=== PATIENT | male | born 1990 | race Caucasian/White ===

== ENCOUNTER → 2019-06-02 08:36 | Outpatient (BNVA) | payer MEDICARE, MEDICAID, SELFPAY | PROVIDERS: Family Provider Family Medicine; PCP Family Medicine; Visit Provider Nurse Practitioner Psychiatric/Mental Health | DX: F31.32 Bipolar disorder, current episode depressed, moderate (principal); F70 Mild intellectual disabilities | CPT/HCPCS: 99213 ==

== ENCOUNTER → 2019-09-23 07:36 | Outpatient (BNVA) | payer MEDICARE, MEDICAID, SELFPAY | PROVIDERS: Family Provider Family Medicine; PCP Family Medicine; Visit Provider Nurse Practitioner Psychiatric/Mental Health | DX: F31.32 Bipolar disorder, current episode depressed, moderate (principal); F70 Mild intellectual disabilities; F41.9 Anxiety disorder, unspecified | CPT/HCPCS: 99213 ==

== ENCOUNTER 2019-10-28 17:43 | Emergency (ER) | payer MEDICARE, MEDICAID, SELFPAY ==
[2019-10-28 17:57] VITALS: BP 129/84; PULSE 116; RESP 17; TEMP 37.1; O2SAT 99; BMI 30.9
[2019-10-28 18:06] VITALS: PULSE 151; RESP 24; O2SAT 97
[2019-10-28] MEDS: sodium chloride 0.9% 1,000 ML 100 ML IV (18:28)
[2019-10-28 18:30] LABS: Basophils % 0.3 %; Eosinophils # 0.2 10^3/uL (0.0-0.8); Eosinophils % 3.3 %; Hematocrit 45.2 % (42.0-52.0); Hemoglobin 14.7 g/dL (11.7-16.6); Lymphocytes # 1.4 10^3/uL (0.8-4.8); Lymphocytes % 19.9 %; Mean Corpuscular HGB Conc 32.5 g/dL (30.0-36.0); Mean Corpuscular Hemoglobin 27.7 pg (28.0-34.0); Mean Corpuscular Volume 85.3 fL (80-94); Monocytes # 0.1 10^3/uL (0.2-0.9); Monocytes % 0.8 %; Neutrophils # 5.45 10^3/uL (1.8-7.7); Neutrophils % 75.6 %; Nucleated Red Blood Cells % 0 %; Platelet Count 219 10^3/cmm (130-400); Red Cell Distribution Width 11.9 % (12.1-15.1); White Blood Count 7.2 10^3/uL (4.0-10.0)
[2019-10-28 18:33] VITALS: BP 119/91; PULSE 134; RESP 24; TEMP 36.8; O2SAT 99
[2019-10-28 18:44] LABS: INR 0.92 (0.8-1.2)
[2019-10-28 18:50] LABS: Alanine Aminotransferase 43 U/L (0-41); Albumin Level 4.9 g/dL (3.5-5.2); Alkaline Phosphatase 84 IU/L (40-130); Anion Gap 14.1 (5-19); Aspartate Amino Transferase 35 U/L (0-40); Blood Urea Nitrogen 16 mg/dL (6-20); Calcium 9.7 mg/dL (8.5-10.5); Carbon Dioxide 27 mmol/L (22-29); Chloride 101 mmol/L (98-107); Glomerular Filtration Rate 98.4 mL/min (90-130); Glucose 91 mg/dL (65-115); Osmolality Calculated 282 mOsm/kg (285-295); Potassium 4.1 mmol/L (3.5-5.1); Sodium 138 mmol/L (136-145); Total Bilirubin 0.3 mg/dL (0.15-1.2); Total Protein 7.9 g/dL (6.6-8.7)
--- NOTE | 2019-10-28 18:51 | PC.NURSE ---
Pt resting quietly in room at this time, caregiver at bedside. Pt and caregiver state that pt straight catheterizes at home. This morning he catheterized and had no urine output. This afternoon at approximately 1600 he catheterized again and had no urine output but some blood return. He went to urgent care and catheterized again at approximately 1700 and had no urine output only blood return again. Pt also appears to have chills but has no fever noted at this time. Supplies given to pt to self-cath for urine specimen. Pt denies any further needs. Dr. Trivedi aware of pt symptoms and elevated HR at this time.
--- NOTE | 2019-10-28 18:56 | W.ED.MALEGU ---
Documented by User: Roxy Trivedi MD 10/31/19 20:24 HPI - Male Genitourinary General: Chief complaint: Urogenital-Male Stated complaint: blood in urine Time Seen by Provider: 10/28/19 18:06 History of Present Illness: HPI Narrative: This patient is a 29-year-old male with a history of spina bifida. He self caths and has done so for a long time. This morning he had gone to [facility] to have blood work done and had not self cathed yet prior to that in case they needed a urine specimen. They did not need a urine specimen and as he was leaving the office he went to the bathroom and tried to self cath. He said he had trouble getting the catheter in and no urine came out. He got frustrated and said he may have pulled the catheter out too fast. He then went on to work. He normally self caths again in the afternoon and he did so when he got home at 4:00. This time he only got blood from the catheter. He went to [facility] again for evaluation of this and when he tried again to cath himself again it was just blood. He has never had this happen before. He is not been having any problems up until this morning. He cannot feel when his bladder is full. He denies any specific complaints but has been shaking a lot and feels generally uncomfortable. He does not think he is had a fever. He has back pain. His caregiver is with him here today. He has been having normal bowel movements. No vomiting. He ate breakfast and lunch okay today. He has not had dinner. Complaint: other (Gross hematuria, self caths) Onset (ago): hour(s) (10) Duration: constant Associated symptoms: Deny nausea or vomiting Review of Systems General: Reports: 10 or more systems reviewed and unremarkable except in HPI and below Const: Denies: fever(s), chills, fatigue or malaise Eyes: Denies: change in vision ENMT: Denies: odynophagia Card: Denies: chest pain or swelling of feet/ankles Resp: Denies: dyspnea, productive cough or non-productive cough GI: Denies: abdominal pain, nausea or vomiting : Reports: other (Difficulty with self cathing, hematuria on subsequent attempts); Denies: flank pain Musc: Reports: back pain; Denies: neck pain Skin/Breast: Denies: rash Neuro: Denies: headache(s), numbness in extremities or weakness in extremities Isaias/Lymph: Denies: easy bruising or easy bleeding PFSH ED PFSH: Medical History Bipolar I disorder, moderate, current or most recent episode depressed, with anxious distress Chronic constipation 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 On [facility] program for bladder drainage secondary to neurogenic bladder from spinal bifida. Complicated by occasional urethral trauma (false passage) Spina bifida Urinary retention Chronic secondary to neurogenic bladder from spinal bifida. On [facility] program Family History Other Diabetes Seizure disorder Social History Smoking and tobacco status: never smoked Alcohol intake: never Substance/Drug Use: never Marital status: Single Current occupational status: disabled Physical Exam Const: COMMON NORMALS: patient oriented x3, no limitations and alert GENERAL APPEARANCE: cooperative and in distress HENMT: HEAD & SCALP: normal to inspection FACE & SINUS: normal facial exam Eye: GENERAL EYE: appearance normal, both eyes and all related structures Neck/C-Spine: COMMON NORMALS: supple, no meningeal signs and no JVD Chest: COMMONS NORMALS: normal inspection of the chest Resp: COMMON NORMALS: normal respiratory effort, No use of accessory muscles and clear to auscultation bilaterally AUSCULTATION: clear to auscultation bilaterally Cardio: COMMON NORMALS: no JVD, regular rate, regular rhythm and No murmurs present (Cardio) RATE: regular rate RHYTHM: regular rhythm GI: COMMON NORMALS: Normal to inspection, nondistended, normoactive bowel sounds present, Soft to palpation and non-tender INSPECTION: Yes normal to inspection AUSCULTATION: Yes normoactive bowel sounds PALPATION: Yes Soft to palpation Back/Pelvis: COMMON NORMALS: thoracic and lumbar spine normal to inspection Extremity: COMMON NORMALS: normal to inspection Neuro: COMMON NORMALS: patient oriented x3, moves all extremities (Spina bifida), no focal motor deficits and no sensory deficits noted SENSORIUM/ORIENTATION: Yes alert MENINGEAL SIGNS: Yes no meningeal signs Psych: COMMON NORMALS: mental status grossly normal, cooperative and normal affect Skin: COMMON NORMALS: no rashes or lesions noted and turgor normal GENERAL SKIN EXAM: no rashes or lesions noted and turgor normal Course ED course: We attempted to place a catheter. I suspect that there may be a false tract. Gross blood was the only thing that was obtained from the catheter. Any attempt to flush the catheter was unsuccessful. Bedside ultrasound shows a large, full bladder. The patient has been persistently tachycardic while in the ED and I suspect this may be related to his full bladder and a sympathetic response. His blood pressure is not been markedly elevated, and in fact at times has been on the low side. I am hesitant to give him fluids given that his bladder is full and we cannot seem to drain it. We been attempting to get a hold of Dr. Kraft without success at this point. I will have to turn the patient over to Dr. Zamarripa for further management. Vital Signs: Vital signs: Vital Signs Temperature 98.3 F 10/28/19 18:33 Pulse Rate 127 H 10/29/19 07:38 Respiratory Rate 16 10/29/19 07:38 Blood Pressure 112/78 10/29/19 07:38 Pulse Oximetry 95 10/29/19 07:38 MDM - Male MDM Narrative: Medical decision making narrative: Suspect urinary retention related to urethral injury. Patient may have created a false tract during his attempt to self cath this morning. May need urology consult. Lab Data: Labs: Lab Results 10/28/19 10/28/19 10/28/19 Range/Units 18:21 18:21 18:21 WBC 7.2 (4.0-10.0) 10^3/ uL RBC 5.30 (4.1-5.3) 10^6/u L Hgb 14.7 (11.7-16.6) g/dL Hct 45.2 (42.0-52.0) % MCV 85.3 (80-94) fL MCH 27.7 L (28.0-34.0) pg MCHC 32.5 (30.0-36.0) g/dL RDW 11.9 L (12.1-15.1) % Plt Count 219 (130-400) 10^3/c mm MPV 9.0 (7.4-10.4) fL Neut % (Auto) 75.6 % Lymph % (Auto) 19.9 % Cataño % (Auto) 0.8 % Eos % (Auto) 3.3 % Baso % (Auto) 0.3 % Neut # (Auto) 5.45 (1.8-7.7) 10^3/u L Lymph # (Auto) 1.4 (0.8-4.8) 10^3/u L Cataño # (Auto) 0.1 L (0.2-0.9) 10^3/u L Eos # (Auto) 0.2 (0.0-0.8) 10^3/u L Baso # (Auto) 0.0 (0.0-0.1) 10^3/u L Nucleated RBC % (a uto) 0 % Nucleated RBCs # 0.0 /100WBC PT 12.60 (10.5-13.3) SECO NDS INR 0.92 (0.8-1.2) Sodium 138 (136-145) mmol/L Potassium 4.1 (3.5-5.1) mmol/L Chloride 101 (98-107) mmol/L Carbon Dioxide 27 (22-29) mmol/L Anion Gap 14.1 (5-19) BUN 16 (6-20) mg/dL Creatinine 0.9 (0.7-1.2) mg/dL GFR Calculation 98.4 (90-130) mL/min Glucose 91 (65-115) mg/dL Calculated Osmolal ity 282 L (285-295) mOsm/k g Lactate (0.5-2.2) mmol/L Calcium 9.7 (8.5-10.5) mg/dL Total Bilirubin 0.3 (0.15-1.2) mg/dL AST 35 (0-40) U/L ALT 43 H (0-41) U/L Alkaline Phosphata se 84 (40-130) IU/L Total Protein 7.9 (6.6-8.7) g/dL Albumin 4.9 (3.5-5.2) g/dL Globulin 3.0 (1.3-4.6) g/dL Urine Color (Yellow) Urine Appearance (CLEAR) Urine pH (5-7) Ur Specific Gravit y (1.005-1.030) Urine Protein (Negative) Urine Glucose (UA) (Normal) Urine Ketones (Negative) Urine Blood (Negative) Urine Nitrate (Negative) Urine Bilirubin (NEGATIVE) Urine Urobilinogen (Negative) mg/dL Ur Leukocyte Romina ase (Negative) Urine RBC (0-2) /hpf Urine WBC (0-5) /hpf Ur Squamous Epith Cells (0-5) Amorphous Sediment Urine Bacteria (NONE) 10/28/19 10/29/19 Range/Units 22:19 07:05 WBC (4.0-10.0) 10^3/ uL RBC (4.1-5.3) 10^6/u L Hgb (11.7-16.6) g/dL Hct (42.0-52.0) % MCV (80-94) fL MCH (28.0-34.0) pg MCHC (30.0-36.0) g/dL RDW (12.1-15.1) % Plt Count (130-400) 10^3/c mm MPV (7.4-10.4) fL Neut % (Auto) % Lymph % (Auto) % Cataño % (Auto) % Eos % (Auto) % Baso % (Auto) % Neut # (Auto) (1.8-7.7) 10^3/u L Lymph # (Auto) (0.8-4.8) 10^3/u L Cataño # (Auto) (0.2-0.9) 10^3/u L Eos # (Auto) (0.0-0.8) 10^3/u L Baso # (Auto) (0.0-0.1) 10^3/u L Nucleated RBC % (a uto) % Nucleated RBCs # /100WBC PT (10.5-13.3) SECO NDS INR (0.8-1.2) Sodium (136-145) mmol/L Potassium (3.5-5.1) mmol/L Chloride (98-107) mmol/L Carbon Dioxide (22-29) mmol/L Anion Gap (5-19) BUN (6-20) mg/dL Creatinine (0.7-1.2) mg/dL GFR Calculation (90-130) mL/min Glucose (65-115) mg/dL Calculated Osmolal ity (285-295) mOsm/k g Lactate 1.9 (0.5-2.2) mmol/L Calcium (8.5-10.5) mg/dL Total Bilirubin (0.15-1.2) mg/dL AST (0-40) U/L ALT (0-41) U/L Alkaline Phosphata se (40-130) IU/L Total Protein (6.6-8.7) g/dL Albumin (3.5-5.2) g/dL Globulin (1.3-4.6) g/dL Urine Color Yellow (Yellow) Urine Appearance Cloudy (CLEAR) Urine pH 6.5 (5-7) Ur Specific Gravit y 1.010 (1.005-1.030) Urine Protein Neg (Negative) Urine Glucose (UA) Norm (Normal) Urine Ketones Negative (Negative) Urine Blood 3+ H (Negative) Urine Nitrate Negative (Negative) Urine Bilirubin Neg (NEGATIVE) Urine Urobilinogen Norm (Negative) mg/dL Ur Leukocyte Romina ase 2+ H (Negative) Urine RBC 25-40 H (0-2) /hpf Urine WBC >100 H (0-5) /hpf Ur Squamous Epith Cells 5-10 H (0-5) Amorphous Sediment Not Reportable Urine Bacteria 2+ H (NONE) Discharge Plan Discharge Patient Disposition: Home, Self-Care Clinical Impression: Acute urinary retention Urinary tract infection Qualifiers: Urinary tract infection type: acute cystitis Hematuria presence: without hematuria Qualified Code(s): N30.00 - Acute cystitis without hematuria Condition: Stable Prescriptions: New sulfamethoxazole-trimethoprim 800-160 mg tablet 1 tab PO BID 7 Days Qty: 14 RF: 0 No Action acetaminophen 500 mg capsule 500 mg PO Q6H PRNRF: 0 diphenhydramine HCl [Benadryl Allergy] 25 mg tablet 25 mg PO TID PRNRF: 0 docusate sodium [Colace] 100 mg capsule 100 mg PO BID RF: 0 loperamide [Anti-Diarrheal (loperamide)] 2 mg capsule 2 mg PO Q4H PRNRF: 0 vitamin E (dl, acetate) 400 unit capsule 400 unit PO DAILY RF: 0 guaifenesin [Mucinex] 600 mg tablet extended release 12hr 600 mg PO BID PRNRF: 0 venlafaxine [Effexor XR] 75 mg capsule,extended release 24hr 75 mg PO QAM Qty: 30 RF: 5 quetiapine [Seroquel] 50 mg tablet 50 mg PO BID Qty: 60 RF: 5 Discharge Orders: Discharge Order (Routine); Ordered 10/29/19 Ordered By: Roxy Trivedi Referrals: Jovany Kraft MD [Physician] - 1 week Marcin Ya MD [Primary Care Provider] - Discharge Diet: Usual diet Discharge Activity: Resume usual activity Activity Restrictions/Additional Instructions: 1. The Schmidt catheter must remain in place until reevaluated by me. It is possible that the catheter will need to stay in for several weeks to allow healing of the urethra. 2. We will plan on follow-up in roughly 1 week and make that decision. Can use a large back or leg bag to drain the catheter. Discharge Date/Time: 10/29/19 07:51 Sign Out Sign Out Data: Patient Sign Out occurred on 10/28/19 at 23:58. Patient's care was discussed, and care was transferred from to Jacqui Ohara. 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 On [facility] program for bladder drainage secondary to neurogenic bladder from spinal bifida. Complicated by occasional urethral trauma (false passage) Spina bifida Urinary retention Chronic secondary to neurogenic bladder from spinal bifida. On [facility] program Family History Other Diabetes Seizure disorder Social History Smoking and tobacco status: never smoked Alcohol intake: never Substance/Drug Use: never Marital status: Single Current occupational status: disabled Course ED course: 0005 -Case turned over to me at change of shift from Dr. Trivedi. Please see her note for her history, physical exam and medical decision-making notes. Currently we are trying to contact Dr. Kraft as he is engineer operations and maintenance but has not answered his phone up to this point. 0220 -every attempt has been made to reach Dr. Kraft by his cell phone, home phone, paging and we have even sent someone to his house but he is not home and is apparently completely unavailable. I will discuss with family transfer to another facility with urology capabilities. 0230 -Case reviewed with the ER doctor at [facility] and they do not have urology engineer operations and maintenance. 0244 -Case reviewed with [facility], they are forced open and not accepting patients at this time. 0245 -[facility] and are not accepting patients at this time. 0255 -Case reviewed with Dr. Washburn at [facility], they have urologist engineer operations and maintenance and are open. Patient is currently stable except for mild tachycardia. Blood pressure is good. His pain is under control. [facility] has been called and is currently on their way to come get the patient. I did discuss the case with Dr. Banks who states he does not put in suprapubic catheters and the patient will need to be transferred. I have never placed a suprapubic catheter and at this time the patient feels comfortable, and although tachycardic his vitals have not changed. I feel be more appropriate to have a Schmidt catheter placed by a urologist which he will be able to have done within the next 1 hour or so when he is at [facility]. [id number] here to take the patient. Vital signs are stable. Patient is had no sign of deterioration in his status. 0415 ?[facility] has returned secondary to weather. [facility] has been called to transfer the patient. 0438 -Dr. Kraft has returned her phone call. His phone has not worked but he is seen that he has calls and has responded. He will come to assess the patient immediately. Vital Signs: Vital signs: Vital Signs Temperature 98.3 F 10/28/19 18:33 Pulse Rate 127 H 10/29/19 07:38 Respiratory Rate 16 10/29/19 07:38 Blood Pressure 112/78 10/29/19 07:38 Pulse Oximetry 95 10/29/19 07:38 MDM - Male Lab Data: Attestation: I reviewed the patient's lab results. Labs: Lab Results 10/28/19 10/28/19 10/28/19 Range/Units 18:21 18:21 18:21 WBC 7.2 (4.0-10.0) 10^3/ uL RBC 5.30 (4.1-5.3) 10^6/u L Hgb 14.7 (11.7-16.6) g/dL Hct 45.2 (42.0-52.0) % MCV 85.3 (80-94) fL MCH 27.7 L (28.0-34.0) pg MCHC 32.5 (30.0-36.0) g/dL RDW 11.9 L (12.1-15.1) % Plt Count 219 (130-400) 10^3/c mm MPV 9.0 (7.4-10.4) fL Neut % (Auto) 75.6 % Lymph % (Auto) 19.9 % Cataño % (Auto) 0.8 % Eos % (Auto) 3.3 % Baso % (Auto) 0.3 % Neut # (Auto) 5.45 (1.8-7.7) 10^3/u L Lymph # (Auto) 1.4 (0.8-4.8) 10^3/u L Cataño # (Auto) 0.1 L (0.2-0.9) 10^3/u L Eos # (Auto) 0.2 (0.0-0.8) 10^3/u L Baso # (Auto) 0.0 (0.0-0.1) 10^3/u L Nucleated RBC % (a uto) 0 % Nucleated RBCs # 0.0 /100WBC PT 12.60 (10.5-13.3) SECO NDS INR 0.92 (0.8-1.2) Sodium 138 (136-145) mmol/L Potassium 4.1 (3.5-5.1) mmol/L Chloride 101 (98-107) mmol/L Carbon Dioxide 27 (22-29) mmol/L Anion Gap 14.1 (5-19) BUN 16 (6-20) mg/dL Creatinine 0.9 (0.7-1.2) mg/dL GFR Calculation 98.4 (90-130) mL/min Glucose 91 (65-115) mg/dL Calculated Osmolal ity 282 L (285-295) mOsm/k g Lactate (0.5-2.2) mmol/L Calcium 9.7 (8.5-10.5) mg/dL Total Bilirubin 0.3 (0.15-1.2) mg/dL AST 35 (0-40) U/L ALT 43 H (0-41) U/L Alkaline Phosphata se 84 (40-130) IU/L Total Protein 7.9 (6.6-8.7) g/dL Albumin 4.9 (3.5-5.2) g/dL Globulin 3.0 (1.3-4.6) g/dL Urine Color (Yellow) Urine Appearance (CLEAR) Urine pH (5-7) Ur Specific Gravit y (1.005-1.030) Urine Protein (Negative) Urine Glucose (UA) (Normal) Urine Ketones (Negative) Urine Blood (Negative) Urine Nitrate (Negative) Urine Bilirubin (NEGATIVE) Urine Urobilinogen (Negative) mg/dL Ur Leukocyte Romina ase (Negative) Urine RBC (0-2) /hpf Urine WBC (0-5) /hpf Ur Squamous Epith Cells (0-5) Amorphous Sediment Urine Bacteria (NONE) 10/28/19 10/29/19 Range/Units 22:19 07:05 WBC (4.0-10.0) 10^3/ uL RBC (4.1-5.3) 10^6/u L Hgb (11.7-16.6) g/dL Hct (42.0-52.0) % MCV (80-94) fL MCH (28.0-34.0) pg MCHC (30.0-36.0) g/dL RDW (12.1-15.1) % Plt Count (130-400) 10^3/c mm MPV (7.4-10.4) fL Neut % (Auto) % Lymph % (Auto) % Cataño % (Auto) % Eos % (Auto) % Baso % (Auto) % Neut # (Auto) (1.8-7.7) 10^3/u L Lymph # (Auto) (0.8-4.8) 10^3/u L Cataño # (Auto) (0.2-0.9) 10^3/u L Eos # (Auto) (0.0-0.8) 10^3/u L Baso # (Auto) (0.0-0.1) 10^3/u L Nucleated RBC % (a uto) % Nucleated RBCs # /100WBC PT (10.5-13.3) SECO NDS INR (0.8-1.2) Sodium (136-145) mmol/L Potassium (3.5-5.1) mmol/L Chloride (98-107) mmol/L Carbon Dioxide (22-29) mmol/L Anion Gap (5-19) BUN (6-20) mg/dL Creatinine (0.7-1.2) mg/dL GFR Calculation (90-130) mL/min Glucose (65-115) mg/dL Calculated Osmolal ity (285-295) mOsm/k g Lactate 1.9 (0.5-2.2) mmol/L Calcium (8.5-10.5) mg/dL Total Bilirubin (0.15-1.2) mg/dL AST (0-40) U/L ALT (0-41) U/L Alkaline Phosphata se (40-130) IU/L Total Protein (6.6-8.7) g/dL Albumin (3.5-5.2) g/dL Globulin (1.3-4.6) g/dL Urine Color Yellow (Yellow) Urine Appearance Cloudy (CLEAR) Urine pH 6.5 (5-7) Ur Specific Gravit y 1.010 (1.005-1.030) Urine Protein Neg (Negative) Urine Glucose (UA) Norm (Normal) Urine Ketones Negative (Negative) Urine Blood 3+ H (Negative) Urine Nitrate Negative (Negative) Urine Bilirubin Neg (NEGATIVE) Urine Urobilinogen Norm (Negative) mg/dL Ur Leukocyte Romina ase 2+ H (Negative) Urine RBC 25-40 H (0-2) /hpf Urine WBC >100 H (0-5) /hpf Ur Squamous Epith Cells 5-10 H (0-5) Amorphous Sediment Not Reportable Urine Bacteria 2+ H (NONE) EKG Data: EKG 1: Attestation: I personally reviewed and interpreted this EKG as follows: EKG Data: 10/29/19 EKG interpretation time: 02:55 Interpretation: Normal sinus rhythm 138 beats a minute, no acute ST-T wave changes. Discharge Plan Discharge Patient Disposition: Home, Self-Care Clinical Impression: Acute urinary retention Urinary tract infection Qualifiers: Urinary tract infection type: acute cystitis Hematuria presence: without hematuria Qualified Code(s): N30.00 - Acute cystitis without hematuria Condition: Stable Prescriptions: New sulfamethoxazole-trimethoprim 800-160 mg tablet 1 tab PO BID 7 Days Qty: 14 RF: 0 No Action acetaminophen 500 mg capsule 500 mg PO Q6H PRNRF: 0 diphenhydramine HCl [Benadryl Allergy] 25 mg tablet 25 mg PO TID PRNRF: 0 docusate sodium [Colace] 100 mg capsule 100 mg PO BID RF: 0 loperamide [Anti-Diarrheal (loperamide)] 2 mg capsule 2 mg PO Q4H PRNRF: 0 vitamin E (dl, acetate) 400 unit capsule 400 unit PO DAILY RF: 0 guaifenesin [Mucinex] 600 mg tablet extended release 12hr 600 mg PO BID PRNRF: 0 venlafaxine [Effexor XR] 75 mg capsule,extended release 24hr 75 mg PO QAM Qty: 30 RF: 5 quetiapine [Seroquel] 50 mg tablet 50 mg PO BID Qty: 60 RF: 5 Discharge Orders: Discharge Order (Routine); Ordered 10/29/19 Ordered By: Roxy Trivedi Referrals: Jovany Kraft MD [Physician] - 1 week Marcin Ya MD [Primary Care Provider] - Discharge Diet: Usual diet Discharge Activity: Resume usual activity Activity Restrictions/Additional Instructions: 1. The Schmidt catheter must remain in place until reevaluated by me. It is possible that the catheter will need to stay in for several weeks to allow healing of the urethra. 2. We will plan on follow-up in roughly 1 week and make that decision. Can use a large back or leg bag to drain the catheter. Discharge Date/Time: 10/29/19 07:51 Sign Out Sign Out Data: Patient Sign Out occurred on 10/28/19 at 23:58. Patient's care was discussed, and care was transferred from to Jacqui Ohara. Coding Level of Care Code ED Numerical Control Machine Machinist for Mateo Fwd Exam Comprehensive
--- NOTE | 2019-10-28 19:13 | PC.NURSE ---
REPORTED HR OF [address] MCMAHON VERBALIZED UNDERSTANDING NO FURTHER ORDERS.
--- NOTE | 2019-10-28 19:17 | PC.NURSE ---
PC TO [facility] FOR NEED OF COUDE VERBALIZED UNDERSTANDING AND STATED IT WOULD BE MADE AVAILABLE DEVENDRA.
--- NOTE | 2019-10-28 19:29 | PC.NURSE ---
HR OF 166BPM INFORMED DR. MCMAHON VERBALIZED UNDERSTANDING VO FOR VM'S. ATTEMPTED PT HR NO CHANGE. INFORMED DR. MCMAHON VERBALIZED UNDERSTANDING NO FURTHER ORDERS.
--- NOTE | 2019-10-28 19:57 | PC.NURSE ---
EKG done at 1911 and shown to ER doctor
--- NOTE | 2019-10-28 20:00 | PC.NURSE ---
REPORTED TO SILVIA CHARGE NURSE RN THAT I WAS UNABLE TO CARE FOR PT AT THIS TIME DT CRITICAL NEED OF ANOTHER PT. SILVIA VERBALIZED UNDERSTANDING AND STATED ANOTHER NYRSE WAS CARING FOR PT.
--- NOTE | 2019-10-28 22:08 | PC.NURSE ---
attempted to irragate villanueva. pushed 60 ml did not return. pt appeared to be in pain when I pushed saline. informed Dr. Trivedi.
[2019-10-28 22:41] LABS: Lactate (Lactic Acid level) 1.9 mmol/L (0.5-2.2)
[2019-10-29] VITALS (11 sets, daily range): BP systolic 97–132; BP diastolic 63–90; PULSE 118–132; RESP 14–19; O2SAT 91–96
--- NOTE | 2019-10-29 00:47 | ECG_ITS ---
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 Measurements Intervals [place] Rate: 138 P: 28 VT: 163 QRS: 13 QRSD: 84 T: 53 QT: 272 QTc: 412 Interpretive Statements SINUS TACHYCARDIA POSSIBLE ANTERIOR MYOCARDIAL INFARCTION , PROBABLY OLD Compared to ECG 05/31/2018 17:47:06 Sinus rhythm no longer present Myocardial infarct finding still present Electronically Signed On 10-29-2019 16:50:40 CDT by Claudia Grace M.D. [email or web address] [facility] [email or web address] va medical [email or web address]/[id number]
[2019-10-29] MEDS: HYDROmorphone 1 mg/mL INJ 1 mL 0.5 MG IVP (01:44)
[2019-10-29] MEDS: ondansetron 2 mg/ML SDV 2 mL 4 MG IVP (01:44)
--- NOTE | 2019-10-29 04:47 | PC.NURSE ---
Pt was brought back by [facility] due to weather and placed back into er #11. Chart was reopened and DR Kraft is on his way in .
--- NOTE | 2019-10-29 04:54 | PC.NURSE ---
patient was being transferred to [place] by [employer] helicopter but the flight crew had to turn around due to weather and patient was brought back to [facility] facility.
[2019-10-29] MEDS: lidocaine 2% Urojet 20 mL TOPICAL (06:15)
--- NOTE | 2019-10-29 06:36 | PM.CONSULT ---
Providers/Reason For Consult Consulting Physican/Specialty*: Urology/Kraft Reason for Consult*: Inability to pass catheter, urinary retention Requesting Physcian: Dr. Ohara Primary Care Provider: Marcin Ya MD History of Present Illness History of Present Illness Awais Celis is a 29 year old male well-known to me for history of neurogenic bladder secondary to spinal bifida. On chronic [facility] program. He has been rather noncompliant over the years and keeping appointments but apparently has done reasonably well for the last 5 to 7 years. Yesterday he had difficulty passing the catheter and had severe bleeding afterwards. Tried several times but could not do it. Presented to the emergency department tonight and attempts at passing catheter were unsuccessful. I was consulted but they had difficulty reaching me due to leaving my phone in my car. Multiple attempts at contacting me even with hospital sending staff to knock on my door were unsuccessful. Upon awaking this morning I realized I did not have my phone call the emergency department in response to the messages left there and came in for evaluation of the patient. His bladder was distended. He was in discomfort from the bladder distention. There was blood at the urethral meatus. I reviewed with him the likelihood of a false passage and recommended flexible cystoscopy for attempt at identification of the true lumen and passage of catheter over guidewire if necessary. PROCEDURE: 1. Cystoscopy with urethral dilation 2. Catheter placement, difficult over guidewire The patient was prepped and draped in the usual sterile fashion with an extremity drape covering the operative field. 2% lidocaine jelly was instilled into the urethra and then the flexible cystoscope was advanced into the urethra. The false passage was identified anterior to a area of complex urethral stricture around the true lumen. A flexible tip guidewire was then advanced through the scope through the true lumen into the bladder. Sequential dilation was conducted with a series of catheter sounds from 10 [place] to 14 [place]. A 12 [place] tip catheter was attempted to be passed but was unsuccessfully passed due to the lack of rigidity. A 14 [place] coud? was then converted to a [place] tip catheter and thankfully it could be advanced over the guidewire into the bladder with good function. The guidewire was removed the balloon inflated and the procedure completed. Catheter was secured to drainage bag and a StatLock was applied to the catheter for security. The urine was cloudy and foul. It was decided to place him on SEPTRA DS for 7 days. After recovery from the procedure he was discharged with his supervisor gluing to home. Follow-up as scheduled for roughly 1 week for repeat cystoscopy to assess healing. I expect that he will require a sequence of passive dilation with Schmidt catheters to facilitate reinstitution of SCIC program after complete healing of the false passage Review of Systems Const: Reports: body aches; Denies: fever(s) or chills Eyes: Denies: change in vision ENMT: Denies: throat pain or change in hearing Card: Denies: chest pain or palpitations Resp: Denies: dyspnea, productive cough, non-productive cough or wheezing GI: Reports: abdominal pain (Suprapubic from bladder distention) : Reports: other (Chronic urinary retention secondary to neurogenic bladder from spinal bifida.) Musc: Denies: neck pain or joint redness Skin/Breast: Denies: rash or pruritus Neuro: Denies: headache(s), Slurred speech present or seizure-like activity Psych: Reports: memory loss Endo: Denies: flushing Isaias/Lymph: Denies: easy bruising or easy bleeding All/Imm: Denies: urticaria Meds/Allergies Home Medications and Allergies Home Medications Medication Instructions Recorded Confirmed Last Taken Type acetaminophen 500 mg capsule 500 mg PO Q6H PRN 06/02/19 06/02/19 Unknown History diphenhydramine HCl 25 mg tablet 25 mg PO TID PRN 06/02/19 06/02/19 Unknown History docusate sodium 100 mg capsule 100 mg PO BID 06/02/19 06/02/19 Unknown History guaifenesin 600 mg tablet, 600 mg PO BID PRN 06/02/19 06/02/19 Unknown History extended release 12 hr loperamide 2 mg capsule 2 mg PO Q4H PRN 06/02/19 06/02/19 Unknown History vitamin E (dl, acetate) 400 unit 400 unit PO DAILY 06/02/19 06/02/19 Unknown History capsule quetiapine 50 mg tablet 50 mg PO BID #60 tab 09/23/19 09/23/19 Unknown Rx venlafaxine 75 mg capsule,extended 75 mg PO QAM #30 cap 09/23/19 09/23/19 Unknown Rx release 24 hr sulfamethoxazole-trimethoprim 1 tab PO BID 7 Days #14 tab 10/29/19 Unknown Rx Allergies Allergy/AdvReac Type Severity Reaction Status Date / Time carbamazepine [From Tegretol] Allergy Unknown Unknown Verified 06/02/19 08:41 divalproex sodium Allergy Unknown Unknown Verified 06/02/19 08:41 [From Depakote] latex Allergy Unknown Unknown Verified 06/02/19 08:41 lorazepam [From Ativan] Allergy Unknown Unknown Verified 06/02/19 08:41 phenytoin [From Dilantin] Allergy Unknown Unknown Verified 06/02/19 08:41 Current Medications Current Medications Generic Name Dose Route Start Last Admin Trade Name Freq PRN Reason Stop Dose Admin Sodium Chloride 1,000 mls @ 100 mls/hr 10/28/19 18:15 10/28/19 18:28 Sodium Chloride 0.9% IV 100 mls/hr .Q10H MALINDA Administration PFSH Acute PFSH: Medical History (Updated 10/29/19 @ 06:47 by Jovany Kraft MD) Bipolar I disorder, moderate, current or most recent episode depressed, with anxious distress Chronic constipation 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 On [facility] program for bladder drainage secondary to neurogenic bladder from spinal bifida. Complicated by occasional urethral trauma (false passage) Spina bifida Urinary retention Chronic secondary to neurogenic bladder from spinal bifida. On [facility] program Family History (Updated 10/29/19 @ 06:42 by Jovany Kraft MD) Other Diabetes Seizure disorder Social History Smoking and tobacco status: never smoked Alcohol intake: never Substance/Drug Use: never Vitals/I&O/Wt Last Vital Signs Temp 98.3 F 10/28/19 18:33 Pulse 124 H 10/29/19 05:19 Resp 14 10/29/19 04:47 BP 131/83 10/29/19 05:19 Pulse Ox 91 10/29/19 05:19 Weight last 48 hrs Weight 175 lb Physical Exam Const: COMMON NORMALS: no acute distress, alert and well nourished GENERAL APPEARANCE: well kempt and well developed ORIENTATION/CONSCIOUSNESS: not confused HENMT: COMMON NORMALS: normocephalic and atraumatic HEAD & SCALP: normocephalic and atraumatic Eye: COMMON NORMALS: conjunctivae normal and no scleral icterus CONJUNCTIVA: Yes conjunctivae normal Neck/C-Spine: COMMON NORMALS: full ROM GENERAL: Yes normal visual inspection Resp: COMMON NORMALS: normal respiratory effort EFFORT & INSPECTION: No tachypneic, No respiratory distress, No labored and No Actively coughing OTHER: No audible wheezing Cardio: COMMON NORMALS: regular rate and regular rhythm RATE: regular rate RHYTHM: regular rhythm GI: COMMON NORMALS: Soft to palpation and non-tender PALPATION: Yes Soft to palpation and No Tenderness to palpation present (GI) RECTAL EXAM: Yes visual inspection normal, Yes normal sphincter tone, Yes prostate normal, No prostate abnormal and No mass : MALE GROIN/PERINEUM EXAM: No ecchymosis and No hernia PENIS: normal penis MEATUS: meatus normal, no meatla discharge and No Blood at meatus present SCROTUM: Yes testes descended bilaterally, No edematous and No scrotal swelling Extremity: COMMON NORMALS: no clubbing, cyanosis or edema Neuro: COMMON NORMALS: no focal motor deficits SENSORIUM/ORIENTATION: Yes alert Psych: APPEARANCE: Yes grossly normal and Yes well kempt ATTITUDE: Yes calm and Yes engaged Skin: COMMON NORMALS: no rashes or lesions noted and no jaundice GENERAL SKIN EXAM: no rashes or lesions noted Urinary Catheter Management^: Coude: Cath Placed During This Visit: yes Urinary Catheter Date of Insertion: 10/28/19 Urinary Catheter Time of Insertion: 21:52 A&P Assessment and plan (1) Urethral false passage: Could not get a catheter in due to false passage from patient [facility]. Complicated by urethral stricture. 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
[2019-10-29] MEDS: HYDROmorphone 1 mg/mL INJ 1 mL IVP (06:44)
[2019-10-29] MEDS: cefTRIAXone 1,000 MG in sodium chloride 0.9% (plus) 50 ML 100 MG IV (06:59)
--- NOTE | 2019-10-29 07:03 | PC.NURSE ---
Dr Kraft at bedside
[2019-10-29 08:09] LABS: Add Urine Microscopic? YES; Bilirubin Urine Neg (NEGATIVE); Blood Urine 3+ (Negative); Glucose Urine UA Norm (Normal); Ketones Urine Negative (Negative); Leukocyte Esterase Urine 2+ (Negative); Nitrate Urine Negative (Negative); Protein Urine Neg (Negative); Urine Appearance Cloudy (CLEAR); Urine Color Yellow (Yellow); Urobilinogen Urine Norm (Negative); pH Urine 6.5 (5-7)
[2019-10-29 08:36] LABS: Add Urine Culture? Yes; Bacteria Urine 2+; RBC Urine 25-40 /hpf (0-2); WBC Urine >100 /hpf (0-5)
--- NOTE | 2019-10-29 13:12 | DCPLANNER ---
banquet manager had message to schedule a follow up appointment for patient with Dr. Kraft. banquet manager called the office of Dr. Kraft, spoke with Roxanne, gave clinic patients information. banquet manager was told that patients information would be printed and reviewed. Clinic will call patient with appointment information.
--- NOTE | 2019-10-30 08:28 | DCPLANNER ---
Patient has a follow up appointment scheduled for Sunday, November 12, 2019 at 8:00. Clinic will call patient with appointment information.
--- NOTE | 2019-11-28 12:59 | DCPLANNER ---
Patient did attend appointment scheduled for 11.12.[address] Kraft.
== END 2019-10-29 07:51 | disposition home or self-care (01) ==
PROVIDERS: Emergency Medicine; Emergency Provider Emergency Medicine; PCP Family Medicine
DX: N30.00 Acute cystitis without hematuria (principal); Q05.9 Spina bifida, unspecified
CPT/HCPCS: 12345; 36415; 51702; 51798; 80053; 81001; 81003; 83605; 85025; 85610; 87077; 87086; 87186; 93005; 96365; 96375; 96376; 99284; J0696; J1170; J2405; J7030

== ENCOUNTER → 2020-01-16 07:40 | Outpatient (BNVA) | payer MEDICARE, MEDICAID, SELFPAY | PROVIDERS: PCP Family Medicine; Visit Provider Nurse Practitioner Psychiatric/Mental Health | DX: F31.32 Bipolar disorder, current episode depressed, moderate (principal); F70 Mild intellectual disabilities | CPT/HCPCS: 99213 ==

== ENCOUNTER → 2020-05-14 07:57 | Outpatient (BNVA) | payer MEDICARE, MEDICAID, SELFPAY | PROVIDERS: PCP Family Medicine; Visit Provider Nurse Practitioner Psychiatric/Mental Health | DX: F31.32 Bipolar disorder, current episode depressed, moderate (principal); F70 Mild intellectual disabilities | CPT/HCPCS: 99213 ==

== ENCOUNTER → 2020-08-31 08:03 | Outpatient (BNVA) | payer MEDICARE, MEDICAID, SELFPAY | PROVIDERS: PCP Family Medicine; Visit Provider Nurse Practitioner Psychiatric/Mental Health | DX: F31.32 Bipolar disorder, current episode depressed, moderate (principal); F70 Mild intellectual disabilities | CPT/HCPCS: 99214 ==

== ENCOUNTER → 2020-12-21 07:15 | Outpatient (BNVA) | payer MEDICARE, MEDICAID, SELFPAY | PROVIDERS: PCP Family Medicine; Visit Provider Nurse Practitioner Psychiatric/Mental Health | DX: F31.32 Bipolar disorder, current episode depressed, moderate (principal); F70 Mild intellectual disabilities | CPT/HCPCS: 99214 ==

== ENCOUNTER → 2021-04-19 07:26 | Outpatient (BNVA) | payer MEDICARE, MEDICAID, SELFPAY | PROVIDERS: PCP Family Medicine; Visit Provider Nurse Practitioner Psychiatric/Mental Health | DX: F31.32 Bipolar disorder, current episode depressed, moderate (principal); F70 Mild intellectual disabilities | CPT/HCPCS: 99214 ==

== ENCOUNTER 2021-04-26 14:50 | Outpatient (CLI) | payer MEDICARE, MEDICAID, SELFPAY ==
--- NOTE | 2021-04-26 15:00 | US_ITS ---
WS: [id number] ULTRASOUND RENAL TECHNIQUE: Ultrasound examination of both kidneys. CLINICAL INFORMATION: urinary retention COMPARISON: None. FINDINGS: RIGHT: Right kidney is normal in size and appearance. Echogenicity: Normal. Cortical thickness: 1.2 cm; Normal. Hydronephrosis: None. Perinephric fluid: None. Right kidney measures: 10.5 cm x 4.9 cm x 4.2 cm. LEFT: Left kidney is normal in size and appearance. Echogenicity: Normal. Cortical thickness: 1.4 cm; Normal. Hydronephrosis: None. Perinephric fluid: None. Left kidney measures: 10.4 cm x 4.3 cm x 4.8 cm. Normal visualized aorta. Mild diffuse bladder wall thickening with a small amount of debris visualize d in the bladder. Recommend correlation for UTI US/US renal BI* [id number] IMPRESSION: 1. No hydronephrosis in either kidney. 2. Mild diffuse bladder wall thickening with a small amount of debris visualiz ed in the bladder. Recommend correlation for UTI
--- NOTE | 2021-04-26 15:45 | XR_ITS ---
WS: [id number] XR KUB [id number] REASON FOR EXAM: URETHRAL FALSE PASSAGE FINDINGS: Unremarkable bowel gas pattern. No free air or retroperitoneal air. No mass identified. No significant calcification noted. Spinal dysraphism involving L5 and the entire is sacrum. XR/XR KUB [id number] IMPRESSION: Lumbosacral spinal dysraphism no acute abdominal or pelvic abnormality.
== END 2021-04-26 14:51 | disposition home or self-care (01) ==
LOC: RAD 14:57
PROVIDERS: PCP Family Medicine; Visit Provider Urology
DX: R33.9 Retention of urine, unspecified (principal); N36.5 Urethral false passage
CPT/HCPCS: 74018; 76770

== ENCOUNTER → 2021-09-19 07:13 | Outpatient (BNVA) | payer MEDICARE, MEDICAID, SELFPAY | PROVIDERS: PCP Family Medicine; Visit Provider Nurse Practitioner Psychiatric/Mental Health | DX: F31.32 Bipolar disorder, current episode depressed, moderate (principal); F70 Mild intellectual disabilities | CPT/HCPCS: 99214 ==

== ENCOUNTER → 2022-02-20 08:26 | Outpatient (BNVA) | payer MEDICARE, MEDICAID, OTHER, SELFPAY | PROVIDERS: PCP Family Medicine; Visit Provider Nurse Practitioner Psychiatric/Mental Health | DX: Z79.899 Other long term (current) drug therapy (principal) | CPT/HCPCS: 80061 ==

== ENCOUNTER 2022-04-27 13:03 | Outpatient (CLI) | payer MEDICARE, MEDICAID, SELFPAY ==
--- NOTE | 2022-04-27 13:14 | XR_ITS ---
WS: [id number] XR KUB [id number] REASON FOR EXAM: URINARY RETENTION FINDINGS: Large spina bifida involving lumbar spine and sacrum. No abnormal gas or fluid collection. No other significant abdominal or pelvic finding. XR/XR KUB [id number] IMPRESSION: Spina bifida. No abdominal or pelvic abnormality.
--- NOTE | 2022-04-27 14:15 | US_ITS ---
WS: [id number] RENAL ULTRASOUND HISTORY: URINARY RETENTION COMPARISON: 04/26/2021 TECHNIQUE: 2-D and color Doppler imaging of the kidney submitted. Right kidney: 11.0 cm x 4.8 cm x 4.2 cm. Normal echogenicity with no hydronephrosis or mass. Left kidney: 11.1 cm x 4.7 cm x 5.0 cm. Normal echogenicity with no hydronephrosis or mass. Aorta: Normal. Urinary Bladder: Normal distention. No significant bladder wall thickening. US/US renal BI* [id number] IMPRESSION: 1. Normal renal ultrasound. 2. No hydronephrosis or mass. 3. Normal urinary bladder.
== END 2022-04-27 13:04 | disposition home or self-care (01) ==
LOC: RAD 13:03
PROVIDERS: PCP Family Medicine; Visit Provider Urology
DX: R33.9 Retention of urine, unspecified (principal); Q05.9 Spina bifida, unspecified; N99.112 Postprocedural membranous urethral stricture, male; N31.2 Flaccid neuropathic bladder, not elsewhere classified; F70 Mild intellectual disabilities
CPT/HCPCS: 74018; 76770; 99213

== ENCOUNTER 2022-09-26 18:20 | Observation (INO) | payer MEDICARE, MEDICAID, SELFPAY ==
[2022-09-26] VITALS (9 sets, daily range): BP systolic 95–135; BP diastolic 70–90; PULSE 104–126; RESP 16–22; TEMP 36.4–37.1; O2SAT 95–100; BMI 28.8
--- NOTE | 2022-09-26 18:37 | ED_ITS ---
HPI - Male Genitourinary General: Chief complaint: Urogenital-Male Stated complaint: Cant Cath, Bleeding Time Seen by Provider: 09/26/22 18:34 Source: patient Mode of arrival: ambulatory Limitations: no limitations History of Present Illness: 32-year-old male states that he typically has to self cath himself 2-3 times a day states he is able to urinate some on his own but has to self cath as well he is done it for years. He states today he went to self cath was unable to and had some hematuria and passed a blood clot. He states he has not tried to urinate since then denies any pain denies any fever he denies any worsening proving factors. Associated symptoms: Deny nausea or vomiting Review of Systems Const: Denies: fever(s) or chills ENMT: Denies: throat pain or dental pain Card: Denies: chest pain Resp: Denies: dyspnea GI: Denies: abdominal pain, nausea, vomiting or diarrhea : Reports: difficulty urinating Musc: Denies: neck pain or back pain Skin/Breast: Denies: rash PFSH ED PFSH: Medical History Bipolar I disorder, moderate, current or most recent episode depressed, with anxious distress Chronic constipation 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 On [facility] program for bladder drainage secondary to neurogenic bladder from spinal bifida. Complicated by occasional urethral trauma (false passage) Psychiatric care Spina bifida Urinary retention Chronic secondary to neurogenic bladder from spinal bifida. On [facility] program Family History Mother Diabetes Other Seizure disorder Social History Smoking and tobacco status: never smoked Alcohol intake: never Substance/Drug Use: never Marital status: Single Current occupational status: disabled Physical Exam Const: COMMON NORMALS: no acute distress, patient oriented x3 and healthy appearing HENMT: COMMON NORMALS: normocephalic and atraumatic HEAD & SCALP: normocephalic and atraumatic Neck/C-Spine: COMMON NORMALS: full ROM and supple Chest: COMMONS NORMALS: normal inspection of the chest Resp: COMMON NORMALS: normal respiratory effort Cardio: COMMON NORMALS: regular rate, regular rhythm and No murmurs present (Cardio) RATE: regular rate RHYTHM: regular rhythm GI: INSPECTION: Yes normal to inspection Extremity: COMMON NORMALS: normal to inspection and full ROM Neuro: COMMON NORMALS: patient oriented x3, moves all extremities and no focal motor deficits Psych: COMMON NORMALS: mental status grossly normal, Normal thought process present and cooperative THOUGHT PROCESS: Normal thought process present Skin: COMMON NORMALS: no rashes or lesions noted and no wounds GENERAL SKIN EXAM: no rashes or lesions noted Course Vital Signs: Vital signs: Vital Signs Temperature 98.8 F 09/26/22 18:28 Pulse Rate 104 H 09/26/22 18:28 Respiratory Rate 16 09/26/22 18:28 Blood Pressure 117/80 09/26/22 18:28 Pulse Oximetry 97 09/26/22 18:28 Oxygen Delivery Me thod Room Air 09/26/22 18:28 MDM - Male Medical Decision Making Patient presents here with urinary retention Dr. Kraft came down to the ER attempted to place a Schmidt was unable to use taking him to the OR at this time. 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
--- NOTE | 2022-09-26 20:31 | P.HP_ITS ---
Providers/Chief Complaint Admitting Physician: Swapnil Primary Care Provider: Marcin Ya MD Chief Complaint: Cant Cath, Bleeding History of Present Illness Awais Celis is a 32 year old male well-known to me for history of neurogenic bladder secondary to spina bifida, managed with [facility] which generally does well with. Over time he is developed a membranous urethral scar tissue that occasionally leads to difficulty voiding and with that false passage formation when he tries to force the catheter. That happened today. This morning catheterizing difficulty. This evening he tried and could not get it and had a lot of bleeding. Attempts in the ER were also unsuccessful. In the emergency department I passed the flexible cystoscope and identified the expected false passage and it was located posteriorly in the deep bulbar urethra. The true lumen could be identified and was significantly scarred circumferentially. It was tight enough that the 15 and half [place] cystoscope could not be manipulated through it. A guidewire was passed through the scope but it did not feel like it went all the way into the bladder. Gentle attempted passing a 10 [place] straight cath over the guidewire was also unsuccessful. Recommendation was made to take him to the operating room for more controlled evaluation of the urethra under anesthesia. Review of Systems Const: Denies: fever(s) or chills Eyes: Denies: change in vision ENMT: Denies: hoarseness Card: Denies: chest pain or palpitations Resp: Denies: dyspnea or productive cough : Reports: other (Chronic urinary retention secondary to neurogenic bladder requiring SCIC.) Skin/Breast: Denies: rash Neuro: Denies: seizure-like activity Psych: Reports: other (Mental retardation ) Endo: Denies: flushing Isaias/Lymph: Denies: easy bruising or easy bleeding All/Imm: Denies: urticaria or acute wheezing Medications/Allergies Home Medications Medication Instructions Recorded Confirmed Last Taken Type acetaminophen 500 mg capsule 500 mg PO Q6H PRN 06/02/19 09/15/22 Unknown History diphenhydramine HCl 25 mg tablet 25 mg PO TID PRN 06/02/19 09/15/22 Unknown History (Benadryl Allergy) docusate sodium 100 mg capsule 100 mg PO BID 06/02/19 09/15/22 Unknown History (Colace) guaifenesin 600 mg tablet, 600 mg PO BID PRN 06/02/19 09/15/22 Unknown History extended release 12 hr (Mucinex) loperamide 2 mg capsule 2 mg PO Q4H PRN 06/02/19 09/15/22 Unknown History (Anti-Diarrheal (loperamide)) vitamin E (dl, acetate) 180 mg 400 unit PO DAILY 06/02/19 09/15/22 Unknown History (400 unit) capsule ondansetron 8 mg disintegrating 8 mg translingual Q8H PRN nausea 02/17/22 09/15/22 Unknown History tablet and vomiting quetiapine 50 mg tablet (Seroquel) 50 mg PO BID #180 tabs 06/02/22 09/15/22 Unknown Rx venlafaxine 75 mg capsule,extended 75 mg PO QAM #90 caps 06/02/22 09/15/22 Unknown Rx release 24 hr (Effexor XR) Allergies Allergy/AdvReac Type Severity Reaction Status Date / Time carbamazepine [From Tegretol] Allergy Unknown Unknown Verified 09/26/22 18:28 divalproex sodium Allergy Unknown Unknown Verified 09/26/22 18:28 [From Depakote] latex Allergy Unknown Unknown Verified 09/26/22 18:28 lorazepam [From Ativan] Allergy Unknown Unknown Verified 09/26/22 18:28 phenytoin [From Dilantin] Allergy Unknown Unknown Verified 09/26/22 18:28 PFSH Acute PFSH: Medical History Bipolar I disorder, moderate, current or most recent episode depressed, with anxious distress Chronic constipation 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 On [facility] program for bladder drainage secondary to neurogenic bladder from spinal bifida. Complicated by occasional urethral trauma (false passage) Psychiatric care Spina bifida Urinary retention Chronic secondary to neurogenic bladder from spinal bifida. On [facility] program Family History Mother Diabetes Other Seizure disorder Social History Smoking and tobacco status: never smoked Alcohol intake: never Substance/Drug Use: never Marital status: Single Current occupational status: disabled Vitals/I&O/Wt Last Vital Signs Temp 98.8 F 09/26/22 18:28 Pulse 104 H 09/26/22 18:28 Resp 16 09/26/22 18:28 BP 117/80 09/26/22 18:28 Pulse Ox 97 09/26/22 18:28 O2 Del Method Room Air 09/26/22 18:28 Weight last 48 hrs Weight 168 lb Physical Exam Const: COMMON NORMALS: no acute distress, alert and well nourished GENERAL APPEARANCE: well kempt and well developed HENMT: COMMON NORMALS: normocephalic HEAD & SCALP: normal to inspection and normocephalic Eye: COMMON NORMALS: conjunctivae normal and no scleral icterus CONJUNCTIVA: Yes conjunctivae normal Neck/C-Spine: GENERAL: Yes normal visual inspection Lymph: LYMPHATIC: no lymphadenopathy noted Resp: COMMON NORMALS: normal respiratory effort EFFORT & INSPECTION: Yes able to speak in complete sentences, No labored and No Actively coughing Cardio: RATE: regular rate RHYTHM: regular rhythm GI: OTHER: Soft, nontender, no masses. : OTHER: Circumcised phallus. Blood at the meatus. Normal scrotum Neuro: SENSORIUM/ORIENTATION: Yes alert Psych: APPEARANCE: Yes well kempt ATTITUDE: Yes calm Skin: COMMON NORMALS: no rashes or lesions noted and no jaundice A&P Assessment and plan (1) Urethral injury: Deep bulbar posterior urethral false passage from malposition of self- catheterization. (2) Postprocedural membranous urethral stricture, male: Chronic. Could not manipulate the scope through the scar tissue. (3) Urinary retention: (4) Urethral false passage: (5) Flaccid neurogenic bladder: (6) Mild intellectual disabilities: Plan To the operating room for cystoscopy, urethral dilation, possible suprapubic tube open Attestations Medical Necessity Statement*: Require surgical intervention. See HPI Coding Level of Care Code Acute Code for g Fwd Diagnoses Urethral injury S37.30XA Postprocedural membranous urethral stricture, male N99.112 Urinary retention R33.9 Urethral false passage N36.5 Flaccid neurogenic bladder N31.2 Mild intellectual disabilities F70
--- NOTE | 2022-09-26 20:54 | P.OP_ITS ---
Operative Report Date of procedure: September 26, 2022 Pre-op diagnosis: Urethral injury with false passage Membranous urethral stricture Post-op diagnosis: Same Procedure done: 1. Cystoscopy, urethral dilation 2. Urethrogram Surgeon: Swapnil Urine output: Not measured Complications: None Findings: Anesthesia: General Condition: Stable Disposition: PACU Intraoperative findings: * Tight deep bulbar/membranous urethral stricture while dilated but still difficult to pass the catheter over wire. * Bulbar urethra extending urethra false passage posteriorly. Brief History: Awais is a 32-year-old white male with spina bifida neurogenic bladder and manages bladder with chronic SCIC. Over the years he has developed a membranous urethral stricture and at times has created false passages with passage of his catheter. Has had at least 2 operative interventions in the past for placing a catheter. Tonight he was seen in the emergency department with inability to pass catheter and blood per urethra after making an attempt at home. Several tries in the emergency room were unsuccessful. A flexible cystoscopy at the bedside was performed and a posterior bulbar urethral false passage was confirmed but the true lumen could be identified more anteriorly but there was a lot of scarring and the scope could not be david pulated through it. Attempts at the flexible guidewire passage were also unsuccessful. It was recommended to go to the operating room for further evaluation and treatment. Plans were to perform a cystoscopy possibly with the ureteroscope, passed the wire, and under fluoroscopic guidance dilation of the urethral stricture passage of the catheter over guidewire. Procedure: After emergent evaluation examination and obtaining of informed consent he was taken to the operating suite on 09/26/2022 where general anesthesia was administered without difficulty after appropriate timeout was performed, SCDs confirmed to be functioning, preoperative antibiotics administered, beta-angelika protocol confirmed. Prepped and draped in the usual sterile fashion in dorsolithotomy position pain careful attention to avoiding pressure points. 17 Citizen [place] cystoscope with 30 degree lens was introduced into the urethral meatus. The urethra was examined. The posterior false passage was identified. Contrast was injected through the true lumen for a urethrogram which demonstrated: Narrow irregular posterior urethra. No extravasation. Flexible tip guidewire was advanced through the cystoscope and went relatively easily through the scarred area curling in the bladder under fluoroscopy. An open-ended ureteral catheter was advanced over the guidewire and the guidewire removed and contrast was injected to opacify the bladder somewhat for dilation purposes under fluoroscopy. Wire was repassed and a 7 Citizen [place] offset semirigid ureteroscope was passed over the guidewire to confirm good enough channel for further dilation. Bladder was distended. The proximal urethra was heavily scarred and irregular. A wire was intraluminal the entire way. 15 Citizen [place] 4 cm balloon was then passed over the guidewire and the balloon inflated to 8 simin of pressure with no waist. Balloon was then switched with a 21 Citizen [place] 10 cm balloon to 6 simin of pressure with no waist. On both passes position was determined by landmarks used when the ureteroscope was passed into the proximal urethra to assure crossing the narrowed area. 16 [place] cowlitz tip catheter was then attempted to be passed over the guidewire was unsuccessful. A 14 [place] cowlitz tipped coud? tip catheter was also attempted but unsuccessfully. Several Amplatz sounds were then passed from 10-16 [place]. Reattempt with a 14 [place] coud? cowlitz tip catheter was unsuccessful and then a 12 [place] coud? tip catheter was able to be manipulated over the wire. Approximately 1 cc of contrast was instilled into the balloon for visualization of the appropriate position and then it was removed and replaced with 10 cc of saline. Balloon was snugged up to the bladder neck confirmed to have a functioning catheter before wire was removed. Tolerated procedure well without complication. Catheter was secured to the drainage bag. Awakened in the operating room and returned to the recovery room in stable condition. PLANS: 1. Admit for observation overnight 2. We will maintain the current catheter for probably 3 to 4 weeks and have a voiding trial with urology likely [place] possible cystoscopy for reassessment of the urethra. 3. He may require a series of catheters for passive dilation and healing before going back to self-catheterization.
--- NOTE | 2022-09-26 21:20 | SC_ITS ---
WS: [id number] REASON FOR EXAM: obstructed urethra FINDINGS: Cannulation of the urethra with catheter and wire with passage of catheter and wire into the urinary bladder. SC/[facility] IMPRESSION: Urethral and bladder cannulation as above.
[2022-09-26] MEDS: iohexol 300 mg/mL 50 mL Btl XX (21:25)
[2022-09-26] MEDS: levofloxacin-dextrose 5 % 500 MG/100 ML PREMIX 100 MG IV (21:28)
--- NOTE | 2022-09-26 21:38 | ANES.PREANE2 ---
Pre-Anesthetic Assessment Height/Weight: Height 1.63 m Weight 76.204 kg Temp Pulse Resp BP Pulse Ox O2 Del Method 98.8 F 104 H 16 117/80 97 Room Air 09/26/22 18:28 09/26/22 18:28 09/26/22 18:28 09/26/22 18:28 09/26/22 18:28 09/26/22 18:28 Operation Date: 09/26/22 21:15 Proposed Procedures p Cystoscopy(Not Applicable) - Jovany Kraft MD Familial anesthetic complications: none Was Beta Riya taken within 24 hours: N/A Was Clonidine taken within 24 hours: N/A Social No alcohol and No tobacco Exam alert, oriented x 3, clear to auscultation bilaterally and regular rate & rhythm Airway Submandibular: within normal limits Cervical ROM: within normal limits Mallampati: Class II Dentition: full neurogenic bladder Neuropsych Anxiety, Bipolar and Depression Spina bifida Anesthetic Plan ASA status: 2E Anesthesia: General (Mod RSI) Medications/Allergies Home Medications Medication Instructions Recorded Confirmed Last Taken Type acetaminophen 500 mg capsule 500 mg PO Q6H PRN 06/02/19 09/15/22 Unknown History diphenhydramine HCl 25 mg tablet 25 mg PO TID PRN 06/02/19 09/15/22 Unknown History (Benadryl Allergy) docusate sodium 100 mg capsule 100 mg PO BID 06/02/19 09/15/22 Unknown History (Colace) guaifenesin 600 mg tablet, 600 mg PO BID PRN 06/02/19 09/15/22 Unknown History extended release 12 hr (Mucinex) loperamide 2 mg capsule 2 mg PO Q4H PRN 06/02/19 09/15/22 Unknown History (Anti-Diarrheal (loperamide)) vitamin E (dl, acetate) 180 mg 400 unit PO DAILY 06/02/19 09/15/22 Unknown History (400 unit) capsule ondansetron 8 mg disintegrating 8 mg translingual Q8H PRN nausea 02/17/22 09/15/22 Unknown History tablet and vomiting quetiapine 50 mg tablet (Seroquel) 50 mg PO BID #180 tabs 06/02/22 09/15/22 Unknown Rx venlafaxine 75 mg capsule,extended 75 mg PO QAM #90 caps 06/02/22 09/15/22 Unknown Rx release 24 hr (Effexor XR) Allergies Allergy/AdvReac Type Severity Reaction Status Date / Time carbamazepine [From Tegretol] Allergy Unknown Unknown Verified 09/26/22 18:28 divalproex sodium Allergy Unknown Unknown Verified 09/26/22 18:28 [From Depakote] latex Allergy Unknown Unknown Verified 09/26/22 18:28 lorazepam [From Ativan] Allergy Unknown Unknown Verified 09/26/22 18:28 phenytoin [From Dilantin] Allergy Unknown Unknown Verified 09/26/22 18:28 Current Medications Generic Name Dose Route Start Last Admin Trade Name Freq PRN Reason Stop Dose Admin Levofloxacin/Dextrose 500 mg in 100 mls @ 100 mls/hr 09/26/22 21:27 09/26/22 21:28 Levaquin-D5w IV 09/26/22 22:26 100 mls/hr ONCE ONE Administration Protocol [facility] Anesthesia Medical History Bipolar I disorder, moderate, current or most recent episode depressed, with anxious distress Chronic constipation 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 On SCIC program for bladder drainage secondary to neurogenic bladder from spinal bifida. Complicated by occasional urethral trauma (false passage) Psychiatric care Spina bifida Urinary retention Chronic secondary to neurogenic bladder from spinal bifida. On SCIC program Family History Mother Diabetes Other Seizure disorder Social History Smoking and tobacco status: never smoked Alcohol intake: never Substance/Drug Use: never Marital status: Single Current occupational status: disabled Data Anesthesia Cardiac Studies: No Data to Display
[2022-09-27] MEDS: sodium chloride 0.9% 1,000 ML 100 ML IV (00:13)
[2022-09-27 03:48] VITALS: BP 105/71; PULSE 115; RESP 18; TEMP 36.4; O2SAT 98
--- NOTE | 2022-09-27 07:16 | P.DS_ITS ---
Discharge Providers Date of Admission: 09/26/22 22:40 Date of Discharge: September 27, 2022 Attending Provider at Admission: Jovany Kraft MD Attending Provider at Discharge: Jovany Kraft MD Primary Care Provider: Marcin Ya MD Diagnoses at Discharge Discharge Diagnosis (1) Urethral injury: Status: Acute (2) Postprocedural membranous urethral stricture, male: Status: Acute Permanent problem details: Deep bulbar stricture. On SCIC program for bladder drainage secondary to neurogenic bladder from spinal bifida. Complicated by occasional urethral trauma (false passage) (3) Urinary retention: Status: Acute Permanent problem details: Chronic secondary to neurogenic bladder from spinal bifida. On SCIC program (4) Urethral false passage: Status: Resolved Permanent problem details: Intermittent urethral trauma from SCIC program complicated by urethral stricture. (5) Flaccid neurogenic bladder: Status: Acute Permanent problem details: Secondary to spinal bifida. On a CIC program (6) Mild intellectual disabilities: Status: Chronic Reason for Visit Reason for Visit: Inability to pass catheter patient with neurogenic Brief History: Was evaluated in the emergency department for bloody urethral discharge after forced to catheterization unsuccessfully achieving bladder location. See HPI. Has a history of this in the past requiring instrumentation via cystoscopy and difficult catheter placement over wire. Hospital Course Hospital Course In the emergency department a flexible cystoscopy was performed that showed a proximal urethral posteriorly directed false passage. The true lumen went through a significant amount of scarred area in the membranous urethra and I could not get a wire through it or any additional instruments via the scope to bridge into the bladder. It was recommended that we go to the operating room emergently for further treatment. Intraoperatively with a rigid cystoscopy a wire was passed through the scarred area into the bladder and sequential dilation both with balloons and Amplatz renal dilator sounds was conducted. Based on the irregularity of the scar tissue and the fixed nature of the membranous urethra I could not get a catheter larger than 12 [place] in his bladder. Multiple different techniques were utilized to try to obtain a larger catheter for postoperative healing and passive dilation. Thankfully the 12 [place] catheter functioned fine. He was discharged on the morning of postoperative day #1. Plans are to see him back in about 10 days for a either catheter change with or without cystoscopy or making arrangements for further passive dilation and follow-up with [facility] after my assisted. Physical Exam Const: COMMON NORMALS: no acute distress, alert and well nourished GENERAL APPEARANCE: well kempt and well developed Resp: COMMON NORMALS: normal respiratory effort EFFORT & INSPECTION: No labored and No Actively coughing Cardio: COMMON NORMALS: regular rate and regular rhythm RATE: regular rate RHYTHM: regular rhythm GI: OTHER: Soft, nontender, no masses. : OTHER: Circumcised phallus. Blood at the meatus around the catheter.. Normal scrotum Neuro: SENSORIUM/ORIENTATION: Yes alert Psych: APPEARANCE: Yes well kempt ATTITUDE: Yes calm Skin: COMMON NORMALS: no rashes or lesions noted and no jaundice GENERAL SKIN EXAM: no rashes or lesions noted Urinary Catheter Management: Coude: Cath Placed During This Visit: yes Reason for Continuing Indwelling Catheter: Acute Urinary Retention or Obstruction Urinary Catheter Date of Insertion: 09/26/22 Urinary Catheter Time of Insertion: 21:20 Discharge Data Studies Completed and Pending Pending at discharge Category Date Time Status [facility] [place] [facility] Routine Exams 09/26/22 21:20 Ordered Procedures Performed Cystoscopy, urethral dilation, difficult catheter placement. Vitals Last Vital Signs Temp 97.6 F 09/27/22 03:48 Pulse 115 H 09/27/22 03:48 Resp 18 09/27/22 03:48 BP 105/71 09/27/22 03:48 Pulse Ox 98 09/27/22 03:48 O2 Del Method Room Air 09/27/22 03:48 O2 Flow Rate 2 09/26/22 23:03 Discharge Plan Discharge Patient Disposition: Home Condition: Stable Prescriptions: New levofloxacin 250 mg tablet 250 mg PO DAILY 10 Days Qty: 10 0RF Continued lubricants Gel 1 ea topical ONCE Qty: 1 0RF acetaminophen 500 mg capsule 500 mg PO Q6H PRN diphenhydramine HCl [Benadryl Allergy] 25 mg tablet 25 mg PO TID PRN docusate sodium [Colace] 100 mg capsule 100 mg PO BID loperamide [Anti-Diarrheal (loperamide)] 2 mg capsule 2 mg PO Q4H PRN vitamin E (dl, acetate) 400 unit capsule 400 unit PO DAILY guaifenesin [Mucinex] 600 mg tablet extended release 12hr 600 mg PO BID PRN ondansetron 8 mg tablet,disintegrating 8 mg translingual Q8H PRN (Reason: nausea and vomiting) quetiapine [Seroquel] 50 mg tablet 50 mg PO BID Qty: 180 2RF Rx Instructions: Take one tablet twice per day venlafaxine [Effexor XR] 75 mg capsule,extended release 24hr 75 mg PO QAM Qty: 90 2RF Rx Instructions: Take one capsule every morning Discharge Orders: Discharge Order (Routine); Ordered 09/27/22 Ordered By: Jovany Kraft Referrals: Jovany Kraft MD [Physician] - 10/09/22 (Possible catheter exchange, cystoscopy) Marcin Ya MD [Primary Care Provider] - Discharge Diet: Usual diet Discharge Activity: Increase activity as tolerated Patient Instructions: Opioid Safety Discharge Attestations Time Spent in Discharge Care*: less than 30 min Quality Metrics Clinical Quality Measures [ No reported AMI, CVA or VTE this stay] Coding Level of Care Code Acute Code for Chg Fwd Diagnoses Urethral injury S37.30XA Postprocedural membranous urethral stricture, male N99.112 Urinary retention R33.9 Urethral false passage N36.5 Flaccid neurogenic bladder N31.2 Mild intellectual disabilities F70
--- NOTE | 2022-09-27 08:59 | ANE.PACU2 ---
Inpatient post-anesthesia follow up: Airway intact: Yes Vital signs: Temperature 97.6 F Pulse Rate 115 Respiratory Rate 18 Blood Pressure 105/71 Pulse Oximetry 98 Oxygen Delivery Me thod Room Air Oxygen Flow Rate 2 Fraction of Inspir ed Oxygen Hydration adequate: Yes Nausea and vomiting: No Pain level: 2 Mental status: Baseline
[2022-09-27 11:25] VITALS: BP 105/71; PULSE 115; RESP 18; TEMP 36.4; O2SAT 98
== END 2022-09-27 11:15 | disposition home or self-care (01) ==
LOC: ER 21:17 → OPS 21:18 → MEDSURG 22:40
PROVIDERS: Admitting Provider Urology; Emergency Provider Emergency Medicine; PCP Family Medicine; Visit Provider Urology
PROC: 0TJB8ZZ Inspection of Bladder, Via Natural or Artificial Opening Endoscopic (ICD-10-PCS; CPT 52000; principal; 2022-09-26 21:15)
PROC: (CPT 52281; 2022-09-26 21:15)
PROC: (CPT 52281; 2022-09-26 21:15)
DX: S37.30XA Unspecified injury of urethra, initial encounter (principal); X58.XXXA Exposure to other specified factors, initial encounter; N99.112 Postprocedural membranous urethral stricture, male; R33.9 Retention of urine, unspecified; N36.5 Urethral false passage; N31.2 Flaccid neuropathic bladder, not elsewhere classified; F70 Mild intellectual disabilities
CPT/HCPCS: 52281; 76000; 96365; 99285; G0378; J0330; J1100; J1956; J2405; J2704; J3010; J7030; Q9967

== ENCOUNTER → 2022-10-09 07:57 | Outpatient (BNVA) | payer MEDICARE, MEDICAID, SELFPAY | PROVIDERS: PCP Family Medicine; Visit Provider Urology | DX: R33.9 Retention of urine, unspecified (principal); N99.112 Postprocedural membranous urethral stricture, male; N31.2 Flaccid neuropathic bladder, not elsewhere classified; Q05.9 Spina bifida, unspecified; F70 Mild intellectual disabilities | CPT/HCPCS: 81003 ==

== ENCOUNTER → 2022-10-10 17:18 | Outpatient (BNVA) | payer MEDICARE, MEDICAID, SELFPAY | PROVIDERS: PCP Family Medicine; Visit Provider Urology | DX: N99.112 Postprocedural membranous urethral stricture, male (principal); S37.30XA Unspecified injury of urethra, initial encounter; F70 Mild intellectual disabilities; X58.XXXA Exposure to other specified factors, initial encounter | CPT/HCPCS: 52000; 99213 ==

== ENCOUNTER → 2022-10-12 08:59 | Outpatient (BNVA) | payer MEDICARE, MEDICAID, SELFPAY | PROVIDERS: PCP Family Medicine; Visit Provider Urology | DX: F70 Mild intellectual disabilities (principal); N99.112 Postprocedural membranous urethral stricture, male; S37.30XA Unspecified injury of urethra, initial encounter; X58.XXXA Exposure to other specified factors, initial encounter | CPT/HCPCS: 99213 ==

== ENCOUNTER → 2022-10-25 08:59 | Outpatient (BNVA) | payer MEDICARE, MEDICAID, SELFPAY | PROVIDERS: PCP Family Medicine; Visit Provider Urology | DX: N99.112 Postprocedural membranous urethral stricture, male (principal); S37.30XA Unspecified injury of urethra, initial encounter; F70 Mild intellectual disabilities; X58.XXXA Exposure to other specified factors, initial encounter | CPT/HCPCS: 99213 ==

== ENCOUNTER → 2023-11-20 13:47 | Outpatient (BNVA) | payer MEDICARE, MEDICAID, SELFPAY | PROVIDERS: PCP Family Medicine; Visit Provider Podiatrist Foot & Ankle Surgery | DX: L97.522 Non-pressure chronic ulcer of other part of left foot with fat layer exposed (principal); M20.41 Other hammer toe(s) (acquired), right foot; M20.11 Hallux valgus (acquired), right foot | CPT/HCPCS: 99203 ==

== ENCOUNTER → 2023-11-29 09:30 | Outpatient (BNVA) | payer MEDICARE, MEDICAID, SELFPAY | PROVIDERS: PCP Family Medicine; Visit Provider Podiatrist Foot & Ankle Surgery | DX: L97.522 Non-pressure chronic ulcer of other part of left foot with fat layer exposed; M20.41 Other hammer toe(s) (acquired), right foot; M20.42 Other hammer toe(s) (acquired), left foot; M20.11 Hallux valgus (acquired), right foot; M20.12 Hallux valgus (acquired), left foot | CPT/HCPCS: 28010 ==

== ENCOUNTER → 2023-12-13 08:56 | Outpatient (BNVA) | payer MEDICARE, MEDICAID, SELFPAY | PROVIDERS: PCP Family Medicine; Visit Provider Podiatrist Foot & Ankle Surgery | DX: M20.41 Other hammer toe(s) (acquired), right foot; M20.11 Hallux valgus (acquired), right foot | CPT/HCPCS: 99213 ==